=== PATIENT | female | born 1960 | race Caucasian/White ===

== ENCOUNTER 2020-12-11 22:58 | Outpatient (REF) | payer OTHER, SELFPAY ==
[2020-12-13 11:34] LABS: COVID-19 RT-PCR UVMMC Result Negative (Negative)
== END 2020-12-11 22:59 | disposition home or self-care (01) ==
LOC: LBN 22:58
PROVIDERS: PCP Nurse Practitioner Family; Visit Provider Nurse Practitioner Family
DX: Z20.822 Contact with and (suspected) exposure to COVID-19 (principal)
CPT/HCPCS: U0003